=== PATIENT | female | born 1940 ===

== ENCOUNTER 2016-07-01 12:57 | Inpatient (IN) | payer MEDICARE, OTHER ==
[2016-07-01] VITALS (10 sets, daily range): BP systolic 91–127; BP diastolic 63–84; PULSE 126–164; RESP 17–33; O2SAT 95–99
[~2016-07-01] VITALS: Ht 160 cm; Wt 88.1 kg
[~2016-07-01 12:57] MED LIST: ASPI-103 PO; OMEP40CA3 PO; [UNRECOGNIZED DRUG - CODE] PO
[2016-07-01] MEDS ORDERED: Diltiazem Inj 125 MG in 0.9% Sodium Chloride 100 ML, Pharmacy To Mix 1 EA IV SCH (13:05)
--- NOTE | 2016-07-01 13:06 | ED.REPORT ---
HPI-Chest Pain 40 and Over Date of Service Jul 01, 2016 ED Provider: Sean Sr DO 75 year old female presents to the ER via EMS due to chest pain and shortness of breath onset just prior to arrival. Associated symptoms include subjective fever, chills, and productive cough with yellow sputum for the past week, and lower extremity swelling for the past month. History of CT 05/19/2007 at which time she was seen at [facility] in [place] and started on Diltiazem and ASA. Atrial fibrillation with RVR with a rate in the 190's in the field. 45mg Cardizem administered en route; 20mg then 25mg. No respiratory medications , but she takes her husbands Spiriva occasionally. Nursing Notes Stated Complaint: CHEST PAIN Chief Complaint: Chest Pain Nursing Notes Reviewed: Yes Allergies: Coded Allergies: No Known Allergies (Unverified , 07/01/16) Scheduled Aspirin-Expunged Drug, Do Not Renew! (Aspirin-Expunged Drug, Do Not Renew!) 325 Mg Tablet 325 MG PO DAILY Diltiazem-Expunged Drug, Do Not Renew! (Diltiazem CD-Expunged Drug, Do Not Renew !) 240 Mg Capsule 240 MG PO DAILY Omeprazole-Expunged Drug, Do Not Renew! (Omeprazole-Expunged Drug, Do Not Renew! ) 40 Mg Capsule.dr 20 MG PO DAILY General Time Seen by MD: 12:58 Chief Complaint Chest pain Hx Obtained From: Patient Arrived By: Ambulance Sudden in Onset?: Yes Onset Occurred: Just prior to arrival Symptom Duration: Since onset Location: : Substernal Quality: Painful Severity: Current: Moderate Severity: Maximum: Moderate Associated with: Reports: Cough, productive, Fever (Subjective), Shortness of Breath Additional Notes: Lower extremity swelling Pertinent Negative: Pt denies other symptoms Context Related History: Reports: GERD, Hypertension, Myocardial infarction Past Medical History Past Medical History Notes: Code Status: DNAR, DNI. Past Medical History CT in 2007 Reports: GERD, Hypertension, Denies: Diabetes mellitus Past Surgical History Reports: Smoking History Current Every Day Smoker Social History Alcohol Use: Denies alcohol use Review of Systems Constitutional: Reports: Chills, Fever (Subjective) Respiratory: Reports: Prod cough, yellow, Shortness of breath, Denies: Hemoptysis Cardiovascular: Reports: Chest pain GI: Denies: Nausea, Vomiting Musculoskeletal: Reports: Extremity swelling (Lower, bilateral), Denies: Extremity pain, Neck pain Skin: Denies Diaphoresis Complete sys rev & neg: except as marked. Physical Exam Initial Vital Signs Vital Signs (First) Date Time Temp Pulse Resp B/P Pulse Ox O2 Delivery O2 Flow Rate FiO2 07/01/16 13:32 36.9 148 22 127/72 97 Nasal Cannula 2 Initial VS: Reviewed Head / Eyes: Atraumatic, Normocephalic Neck: Supple, Non-tender, Full range of motion Skin: Warm, Dry, No cyanosis Neurologic: Alert, Oriented, Nonfocal Psychiatric: Mood/affect normal, Behavior normal, Normal thought content General/Constitutional: Awake, Alert, Well developed, Well nourished Respiratory / Chest: No chest tenderness, No chest wall deformity Rales / Rhonchi: Positive: Rhonchi diffuse Heart Rate / Rhythm: Positive: Irreg irregular rhythm, Tachycardia Bilateral pitting edema up to the thighs. Abdomen: Soft, Non-tender, No guarding, No rebound, No distention Interpretation & Diagnostics Lab Results Interpretation Result Diagram: 07/01/16 1316 07/01/16 1316 Test 07/01/16 13:16 White Blood Count 8.7th/mm3 (3.8-10.1) Red Blood Count 4.81mil/mm3 (3.90-5.20) Hemoglobin 11.3g/dL (12.0-15.6) Hematocrit 38.2% (35.0-46.0) Mean Corpuscular Volume 79.4fL (81-100) Mean Corpuscular Hemoglobin 23.5pg (27.0-35.0) Mean Corpuscular Hemoglobin Concent 29.6% (32.0-37.0) Red Cell Distribution Width 18.7% (12.3-15.4) Platelet Count 497bil/L (150-400) Neutrophils (%) (Auto) 65.2% (40-74) Lymphocytes (%) (Auto) 21.3% (14-46) Monocytes (%) (Auto) 11.2% (4-12) Eosinophils (%) (Auto) 1.5% (0-5) Basophils (%) (Auto) 0.6% (0-3) Prothrombin Time 12.0sec (8.1-12.5) Prothromb Time International Ratio 1.12ratio Activated Partial Thromboplast Time 25.7sec (22.8-33.0) Sodium Level 144mEq/L (134-144) Potassium Level 3.2mEq/L (3.5-5.2) Chloride Level 108mEq/L (97-108) Carbon Dioxide Level 23mmol/L (18-29) Blood Urea Nitrogen 10mg/dL (8-27) Creatinine 0.79mg/dL (0.57-1.00) Estimat Glomerular Filtration Rate 102mL/min (>59) Glucose Level 112mg/dL (60-99) Calcium Level 8.0mg/dL (8.5-10.1) Magnesium Level 2.1mg/dL (1.6-2.6) Total Bilirubin 0.8mg/dL (0.0-1.2) Aspartate Amino Transf (AST/SGOT) 31U/L (0-50) Alanine Aminotransferase (ALT/SGPT) 17U/L (0-32) Alkaline Phosphatase 114U/L (25-165) Troponin T < 0.010ug/L (0.0-0.011) Pro-B-Type Natriuretic Peptide 1454pg/mL (0-301) Total Protein 6.6g/dL (6.4-8.4) Albumin 3.7g/dL (3.4-5.0) Procalcitonin 0.08ng/mL (0.00-0.08) Hold Cuevas Top Tube Received (Received) ECG Interpretation ECG Interpretation: Atrial fibrillation with RVR Time: 13:17 Interpreted by: ED physician X-Ray Chest Interpretation Chest Xray Interpretation: IMPRESSION: 1. Low volume exam. 2. Possible small right pleural effusion. With bibasilar atelectasis, infiltrate is difficult to exclude, especially in the right lower lobe medially. Dictated by: Emery Nascimento M.D. on 07/01/2016 at 13:41 Approved by: Emery Nascimento M.D. on 07/01/2016 at 13:43 View: Portable, 1 view Interpretation / Wet Read by: Interpret - Radiologist Re-Eval/Medical Decision Med Decision/Clinical Course Clinically this appears to be congestive heart failure, anasarca, A. fib with RVR, minimal clinical response to multiple Cardizem boluses and Cardizem drip, IV digoxin given in the ER as well as an amiodarone bolus. Patient will be admitted. No imaging or laboratory studies that confirm any sort of bacterial infection that would necessitate antibiotics at this time. Source of Hx: Old records Time of Eval: 12:37 Re-Evaluation/Progress Note: Notified from field before patient arrival and counseled on medication recommendation for second push of IV Cardizem. Time of Eval: 13:26 Re-Evaluation/Progress Note: Heart rate is still elevated in the 120's. Updated patient on the plan of care. Time of Eval: 14:16 Re-Evaluation/Progress Note: Patient is restless. Requesting medication for her pain. Time of Eval: 15:00 Re-Evaluation/Progress Note: Patient appears improved. Discussed advance directive. Patient is DNAR, DNI. Consultation #1: Referral / Consult Name: Abdias Valentin MD Consulted With: Cardiology Call Returned at: 14:05 Wire Cutter: Will see patient Note: Start heparin, amiodarone, digoxin. Stop cardizem. Admit. Consultation #2: Referral / Consult Name: Zac Ortega MD Consulted With: Hospitalist Call Returned at: 14:56 Wire Cutter: Agrees with eval, Agrees with plan, Accepts admit Counseled Regarding: Diagnosis, Lab results, Need for admission Discharge & Departure Primary Impression: CHF (congestive heart failure) Additional Impressions: Atrial fibrillation with RVR Anasarca Disposition: ADMITTED TO HOSPITAL Discharge Condition All VS Reviewed: Yes Condition: Stable Referrals: Harvinder Reid (PCP) Crit Care Except Billable Proc Time Spent: 75-104 minutes Services Performed: Patient management by me, Time spent at bedside, Reviewing test results, Reviewing imaging, Discussing patient care, Documentation in record Critical Care Notes: See MDM. Lugo Attestation Portions of this note were transcribed by Govind Gamble. I, Dr. Sr, personally performed the history, physical exam and medical decision-making; I reviewed and confirmed the accuracy of the information in the transcribed note. Signed by: Brittney Henry, 07/01/2016 and 15:05 copies to: Harvinder Reid Timothy S DO Jul 01, 2016 13:06 GOVIND GAMBLE Jul 01, 2016 13:20
[2016-07-01] MEDS ORDERED: Diltiazem 5 mg/mL 5 mL Inj IVPUSH ONE (13:15)
[2016-07-01 13:26] LABS: Mean Corpuscular Hemoglobin 23.5 pg (27.0-35.0); Mean Corpuscular Volume 79.4 fL (81-100)
[2016-07-01 13:30] LABS: BASOPHILS % (AUTO) 0.6 % (0-3); EOSINOPHILS % (AUTO) 1.5 % (0-5); MONOCYTES % (AUTO) 11.2 % (4-12); NEUTROPHILS % (AUTO) 65.2 % (40-74); Platelet Count 497 bil/L (150-400)
--- NOTE | 2016-07-01 13:44 | DRSVH ---
PROCEDURE: X-RAY CHEST ONE VIEW, PORTABLE ([id number]) INDICATIONS: CP TECHNIQUE: One view of the chest was acquired. COMPARISON: 04/30/2014 FINDINGS: Surgical changes and devices: None. Lungs and pleura: Possible small right subpulmonic pleural effusion, no pneumothorax. Low-volume insp iration. Lower lobe markings are accentuated bilaterally most marked in the right retrocardiac region .. Mediastinum: Mediastinal contours appear normal. Heart size is normal. Bones and chest wall: No suspicious bony lesions. Overlying soft tissues appear unremarkable. IMPRESSION: 1. Low volume exam. 2. Possible small right pleural effusion. With bibasilar atelectasis, infiltrate is difficult to excl ude, especially in the right lower lobe medially. Dictated by: Emery Nascimento M.D. on 07/01/2016 at 13:41 Approved by: Emery Nascimento M.D. on 07/01/2016 at 13:43
[2016-07-01 13:52] LABS: INR 1.12 ratio
[2016-07-01 13:55] LABS: Magnesium 2.1 mg/dL (1.6-2.6)
[2016-07-01] MEDS ORDERED: Digoxin 0.25 mg/mL 2 mL Inj IV ONE (13:55)
[2016-07-01 13:59] LABS: TROPONIN T < 0.010 ug/L (0.0-0.011)
[2016-07-01] MEDS ORDERED: Potassium Chloride 20 mEq SR Tablet PO ONE (14:05)
[2016-07-01] MEDS ORDERED: Furosemide 10 mg/mL 4 mL Inj IVPUSH ONE (14:05)
[2016-07-01] MEDS ORDERED: Amiodarone 150 mg/100 mL D5W 150 MG in IV Premix 1 EACH IV ONE (14:10)
[2016-07-01] MEDS ORDERED: Heparin 5,000 Unit/mL Inj IVPUSH ONE (14:15)
[2016-07-01] MEDS ORDERED: Heparin 25K Unit/500mL 0.45 NS 25,000 UNIT in IV Premix 1 EACH IV ONE (14:15)
[2016-07-01] MEDS ORDERED: Amiodarone 360 mg/200 mL D5W 360 MG in IV Premix 1 EACH IV SCH (14:55)
[2016-07-01] MEDS ORDERED: Ondansetron 2 mg/mL 2 mL Inj IVPUSH PRN (15:00)
[2016-07-01] MEDS ORDERED: Alum-Mag Hydrox-Simeth 30 mL Suspension PO PRN ×2 (15:00→15:50)
[2016-07-01] MEDS ORDERED: Polyethylene Glycol (PEG) 17 Gm Powder PO PRN (15:50)
[2016-07-01] MEDS ORDERED: Albuterol-Ipratropium 3 mL Inhalation Solution NEB ONE (16:20)
[2016-07-01] MEDS ORDERED: Albuterol-Ipratropium 3 mL Inhalation Solution NEB PRN (16:20)
[2016-07-01] MEDS: Amiodarone 360 mg/200 mL D5W 360 MG in IV Premix 1 EACH IV SCH ×2 (16:51→23:01)
[2016-07-01 16:53] LABS: APPEARANCE,URINE CLOUDY (CLEAR,HAZY); COLOR,URINE BLOODY (YELLOW)
[2016-07-01 16:54] LABS: OCCULT BLOOD,URINE MODERATE (NEGATIVE); PH,URINE 5.5 (5.0-8.0)
[2016-07-01] MEDS ORDERED: TRAM50TA2 PO (17:42)
[2016-07-01] MEDS ORDERED: GABA-504 PO (17:42)
[2016-07-01] MEDS ORDERED: DILT240C89 PO (17:42)
[2016-07-01] MEDS ORDERED: OMEP20CA11 PO (17:42)
[2016-07-01] MEDS ORDERED: ASPI-973 PO (17:42)
--- NOTE | 2016-07-01 18:08 | DRSVH ---
[facility] [address] [place] [address] Echocardiogram Report Name: CAROL VALENZUELA BStudy Date : 07/01/2016 Height: 63 in Hospital Exam Location: [facility] Weight: 182 lb Gender: Female BSA: 1.9 m2 : 1940 Age: 75 yrs BP: 119/84 mmHg Reason For Study: Anasarca, SOB History: [place], HTN, SMOKER Ordering Physician: Performed By: Christy Tyler Referring Physician: Harvinder Reid Interpretation Summary The left ventricle is normal in size. Left ventricular systolic function is moderately reduced. The ejection fraction is estimated to be 35-40%. There is moderate global hypokinesis of the left ventricle. Diastolic function could not be accurately assessed due to atrial fibrillation. The right ventricle is normal in size and function. The right ventricular systolic pressure is estimated at 26 mmHg assuming a right atrial pressure of 8 mm Hg. The left atrium is mildly dilated. The right atrium is severely dilated. There is mild mitral regurgitation. There is no other significant valvular heart disease. There is a moderate right-sided pleural effusion. Procedure: A two-dimensional transthoracic echocardiogram with color flow and Doppler was performed. The study quality was technically adequate. There is no prior echocardiogram noted for this patient. A contrast injection of Definity was performed to improve assessment of LV function. The patient was in atrial fibrillation with rapid ventricular response during the exam with a heart rate exceeding 100 bpm. Left Ventricle: The left ventricle is normal in size. Left ventricular wall thickness is normal. Left ventricular systolic function is moderately reduced. The ejection fraction is estimated to be 35-40%. There is moderate global hypokinesis of the left ventricle. Diastolic function could not be accurately assessed due to atrial fibrillation. Right Ventricle: The right ventricle is normal in size and function. Atria: The left atrium is mildly dilated. The right atrium is severely dilated. Mitral Valve: The mitral valve leaflets are slightly calcified. There is mild mitral regurgitation. Aortic Valve: The aortic valve is normal in structure and function. No aortic regurgitation is present. Tricuspid Valve: The tricuspid valve is not well visualized. There is mild tricuspid regurgitation. The right ventricular systolic pressure is estimated at 26 mmHg assuming a right atrial pressure of 8 mm Hg. Pulmonic Valve: The pulmonic valve is not well visualized. There is no other significant valvular heart disease. Great Vessels: The aortic root is normal size. The ascending aorta is normal in size. The aortic arch could not be visualized. The IVC is of normal diameter and collapses less than 50% with a sniff. This suggests a right atrial pressure of 8 mm Hg. Pericardium/ Pleura There is a trace loculated pericardial effusion. There is a moderate right-sided pleural effusion. MMode/2D Measurements & Calculations LVIDd: 4.7 cm LA dimension: 5.0 cm RA long axis LVOT diam LVIDs: 3.3 cm FS: 29.8 % LA A2 area: 23.9 cm RA area AoV Opening EPSS: 0.54 cm LA A4 area: 27.2 cm IVSd: 0.81 cm LA length (vol): 7.0 cm: 25.8 cm Ao root diam LVPWd: 0.91 cm LA vol: 79.1 ml RA vol LA vol index : 93.0 ml asc Aorta RA Diam: 3.0 cm : 50.0 mm2 IVC diam: 2.0 cm LV buchanan. diameter/BSA LV sys. diameter/BSA (cm/m^2): 2.5 (cm/m^2): 1.8 Doppler Measurements & Calculations Ao V2 max: 130.3 cm/secMV E max willie Med Peak E' Willie TR max willie Ao max P.8 mmHg : 113.9 cm/sec : 211.4 cm/sec Ao mean P.5 mmHg E/E' med: 15.7 TR max PG LVOT Max Willie : 18.0 mmHg : 92.1 cm/sec PA V2 max : 60.7 cm/sec MANUEL(I,D): 1.6 cm PA mean PG sev ratio: 0.64 : 0.98 mmHg PA Accel Time : 0.09 sec MV dec time: 0.13 sec Ao V2 mean LV V1 max PG PA V2 mean : 88.0 cm/sec : 44.8 cm/sec Ao V2 VTI: 21.5 cmLV V1 VTI : 13.7 cm MANUEL(V,D): 1.8 cm2 MANUEL indexed to BSA (cm^2/m^2): 0.88 Reading Physician:PM
--- NOTE | 2016-07-01 18:13 | NUR ---
Arrived She arrived with her son and to [facility] 2008 at 1605. She was able to walker with stand by assistance to the bathroom where she had blood urinary output. A sample was sent to the lab and the MDs were made aware. She was placed on an MP30 monitor and an Amiodarone drip was started. She immediately had an Echocardiogram done. Care continues.
--- NOTE | 2016-07-01 18:56 | PCM.HPMED ---
Subjective Date of Service Jul 01, 2016 Primary Provider: Admitting Physician: Zac Ortega MD Primary Care Physician: Harvinder Reid Attending Physician: Zac Ortega MD Chief Complaint: SOB, chest pain History of Present Illness: Ms. Kathryn Espana is a 75 year old lady with past medical history significant for [place] (05/19/2007, at which time she was seen at [facility] in [place] and started on Diltiazem 240 mg once daily and ASA), HTN, GERD, and chronic back pain, presents to the ER via EMS due to sharp chest pain an d shortness of breath. Her symptoms started on 05/19/2016. Associated symptoms include subjective fever, chills, and productive cough with yellow sputum for the past week, and swollen lower extremities. She has not been able to lie flat since then and has been using an extra pillow to be able to sleep at night. Her feet pain has limited her from walking. Both her and son have been sick with flu-like symptoms. Atrial fibrillation with RVR with a rate in the 190s in the field. 45 mg Cardizem administered en route; 20 mg then 25 mg. Nor respiratory medications, but she takes her husbands Spiriva occasionally. Review of Systems: Constitutional: reports fever, chills, night sweats, and 60 lbs weight gain since last year CVA: reports chest pain Resp: reports dyspnea, orthopnea, and paroxysmal nocturnal dyspnea GI: reports N/V/D. Denies abdominal pain and blood in her stool LE: reports bilateral LE swelling and pain Allergies Coded Allergies: No Known Allergies (Unverified , 07/01/16) Home Medications diltizem 240 mg daily, omeprazole 20 mg daily, gabapentin 40 mg three times daily, tramadol 50 mg 2 times daily PMH past [place], HTN, GERD Family History significant for diabetes, heart disease and stroke Social History Hx Alcohol Use: Yes (1 beer at nit) Hx Substance Use: No Hx Tobacco Use: Yes (10 cigarettes per day) Smoking Status: Current Every Day Smoker Exam Vital Signs Vital Sign - Last Date Time Temp Pulse Resp B/P Pulse Ox O2 Delivery O2 Flow Rate FiO2 07/01/16 16:34 36.8 144 23 119/84 99 Nasal Cannula 3.00 Exam General: an obese pleasant lady; in no acute stress and conversing well HEENT: mucus membrane dry, edentulous CV: irregularly irregular, tachardiac, no murmurs, rubs, or gallops. No JVD Pulm: Bilateral rhonchi, mild upper airway expiratory wheezing GI: Abs soft, non-tender, distended. Normoactive bowel tones MSK: bilateral, erythematous LE pitting edema, Callus formation on the bottom of the feet. Nails are unkempt. Peripheral pulse weak bilaterally Lab and Diagnostics Result Diagram: 07/01/16 1316 07/01/16 1316 X-Rays, CTs and MRIs X-RAY CHEST ONE VIEW, PORTABLE IMPRESSION: 1. Low volume exam. 2. Possible small right pleural effusion. With bibasilar atelectasis, infiltrate is difficult to exclude, especially in the right lower lobe medially. Dictated by: Emery Nascimento M.D. on 07/01/2016 at 13:41 Cardiac Echo Impressions Echocardiogram Report Interpretation Summary The left ventricle is normal in size. Left ventricular systolic function is moderately reduced. The ejection fraction is estimated to be 35-40%. There is moderate global hypokinesis of the left ventricle. Diastolic function couldnot be accurately assessed due to atrial fibrillation. The right ventricle is normal in size and function. The right ventricular systolic pressure is estimated at 26 mmHg assuming a right atrial pressure of 8 mm Hg. The left atrium is mildly dilated. The right atrium is severely dilated. There is mild mitral regurgitation. There is no other significant valvular heart disease. There is a moderate right-sided pleural effusion. Assessment & Plan Ms. Kathryn Espana is a 75 year old lady with past medical history significant for [place] (05/19/2007, at which time she was seen at [facility] in [place] and started on Diltiazem 240 mg once daily and ASA), HTN, GERD, and chronic back pain, presents to the ER via EMS due to sharp chest pain an d shortness of breath. Her symptoms started on 05/19/2016. Associated symptoms include subjective fever, chills, and productive cough with yellow sputum for the past week, and swollen lower extremities. She has not been able to lie flat since then and has been using an extra pillow to be able to sleep at night. Her feet pain has limited her from walking. Both her and son have been sick with flu-like symptoms. Atrial fibrillation with RVR with a rate in the 190s in the field. 45 mg Cardizem administered en route; 20 mg then 25 mg. Nor respiratory medications, but she takes her husbands Spiriva occasionally. Of note, patient had bloody urine once arriving to the floor. 1. Acute heart failure with reduced ejection fraction, present on admission. Active. - Bilateral LE edema, and CXR consistent with pulmonary edema. She also complains of recent onset dyspnea, PND, and orthopnea. - Echocardiogram as above. EF 35-40%. Previous echo in 2012 showed EF of 81% and previous one of 70% -She received 40 mg IV Lasix this evening, will continue daily. 2. Acute Atrial fibrillation with RVR-active, present on admission. Active. - Noted on EKG. She is on diltizem at home - Given Digoxin in the ED. - [id number] score of 4. on ASA 81mg home. - Amiodarone ggt protocol. - SQ heparin - On tele - Cardiology consulted. 3. Shortness of breath, present on admission. Active. - Most likely 2nd to combination of systolic heart failure and COPD, with patient's long history of tobacco use. - Troponins negaitve x1, repeat pending. EKG with no ST elevation / depressions. Chest pain resolved. - Differential CHF, pneumonia, bronchitis, COPD - Patient was afebrile on presentation; WBC and procal were wnl. Viral panel and blood culture pending - CXR consistent with pulmonary edema. 4. Acute anasarca, present on admission. Active. - Physical exam - bilateral LE pitting edema up to the thigh - Lasix 40 mg IV daily. 5. Acute hematuria, present on admission. Active. - Denies dysuria. UA and cx pending. - Plan for Renal US tomorrow. 6. Chronic hypertension, not present on admission. Active. - She was normotensive on admission - Continue to monitor her 7. Chronic GERD, present on admission. Active. - Continue home meds 8. Obesity - BMI is 32.4 - Start carb restricted diet 9. Chronic back pain, present on admission. Active. - Continue home meds 10. Tobacco use disorder, present on admission. Active. - A current smoker with 30-40 pack year history - Discussed smoking cessation - Start nicotine patch for withdrawal 11. Peripheral neuropathy, present on admission. Active. - HgA1c pending. - continue home gabapentin. Acetaminophen for mild pain when necessary. Bowel regimen Senna and MiraLAX scheduled and PRN. Zofran when necessary for nausea and vomiting. SubQ heparin. SCDs in place. High-risk medications: IV Morphine Disposition: Likely here for > 2 midnights. Dependent upon... Will be discharged to where? When? Acute or chronic? Pain Evaluation: Adequate Pain Control Resuscitation Status: DNR/DNI:Do Not Resuscitate/Intubate Attending Statement The patient was seen and examined together with Dr. Bar on 07/01/2016 and I agree with the history, exam and plan as outlined in the note above. . CHAPIS BAR DO Jul 01, 2016 18:37 Zac Ortega MD Jul 02, 2016 09:23
[2016-07-01] MEDS: Heparin 5,000 Unit/mL Inj SUBQ SCH (23:48)
[2016-07-02] VITALS (7 sets, daily range): BP systolic 96–128; BP diastolic 66–89; PULSE 111–161; RESP 19–24; O2SAT 92–95
[2016-07-02 03:51] LABS: BASOPHILS % (AUTO) 0.7 % (0-3); EOSINOPHILS % (AUTO) 2.2 % (0-5); MONOCYTES % (AUTO) 11.4 % (4-12); Mean Corpuscular Hemoglobin 23.4 pg (27.0-35.0); Mean Corpuscular Volume 80.7 fL (81-100); NEUTROPHILS % (AUTO) 63.1 % (40-74); Platelet Count 429 bil/L (150-400)
--- NOTE | 2016-07-02 06:35 | NUR ---
Ambulation/HR Pt is steady on her feet transferring from bed to commode and back. HR steady with or without movement from 130-150. Pt asymptomatic.
[2016-07-02] MEDS: Heparin 5,000 Unit/mL Inj SUBQ SCH (08:28)
[2016-07-02] MEDS ORDERED: Influenza (Adult) Vaccine 0.5 mL Syringe IM ONE (08:30)
[2016-07-02] MEDS ORDERED: Furosemide 10 mg/mL 4 mL Inj IVPUSH SCH (08:30)
[2016-07-02] MEDS: Amiodarone 360 mg/200 mL D5W 360 MG in IV Premix 1 EACH IV SCH (10:18)
[2016-07-02] MEDS: Heparin 25K Unit/500mL 0.45 NS 25,000 UNIT in IV Premix 1 EACH IV SCH (11:22)
--- NOTE | 2016-07-02 11:26 | NUR ---
spiritual care: dayan Visited with pt this morning who was thankful for the visit. Blessed pt and put her on the list for [employer] communion upon her request. Spiritual care will continue to follow as needed.
--- NOTE | 2016-07-02 12:35 | PCM.PNMED ---
Subjective Date of Service Jul 02, 2016 Subjective Ms. Kathryn Espana is a 75 year old lady with past medical history significant for Afib with RVR, anasarca, and CHF (05/19/2007, at which time she was seen at [facility] in [place] and started on Diltiazem 240 mg once daily and ASA), HTN, GERD, and chronic back pain, presents to the ER via EMS due to sharp chest pain an d shortness of breath. Her symptoms started on 05/19/2016. Associated symptoms include subjective fever, chills, and productive cough with yellow sputum for the past week, and swollen lower extremities. She has not been able to lie flat since then and has been using an extra pillow to be able to sleep at night. Her feet pain has limited her from walking. Both her and son have been sick with flu-like symptoms. Atrial fibrillation with RVR with a rate in the 190s in the field. 45 mg Cardizem administered en route; 20 mg then 25 mg. Nor respiratory medications, but she takes her husbands Spiriva occasionally. Overnight events: no acute events of note. Today: Patient feels great. She states she feels 100 times better than yesterday. No other reports at this time. Denies chest pain, dizziness, headache , shortness of breath, nausea, vomiting, diarrhea, abdominal pain, dysuria. Exam Vital Signs Vital Sign - Last Date Time Temp Pulse Resp B/P Pulse Ox O2 Delivery O2 Flow Rate FiO2 07/02/16 02:56 36.5 131 19 96/66 93 Nasal Cannula 3.00 Intake and Output 07/01/16 07/01/16 07/02/16 Cumulative From/Thru 15:00 23:00 07:00 07/01/16 13:32 - 07/02/16 06:35 Intake Total 120 ml 503 ml 623 ml Output Total 750 ml 300 ml 1050 ml Balance -630 ml 203 ml -427 ml Intake Oral 120 ml 120 ml IV Total 303 ml 303 ml TPN/PPN 200 ml 200 ml Output Urine Total 750 ml 300 ml 1050 ml # Bowel Movements 0 0 Exam General: an obese pleasant lady; in no acute stress and conversing well HEENT: Normocephalic, atraumatic. External ears without defect. Pupils equal, round, and reactive to light and accommodation. Anicteric sclerae, moist conjunctivae, and no lid lag. Oropharynx free of erythema and cobble stoning with moist mucosa. Neck: Supple with full range of motion. No jugular venous distension. No bruits. No lymphadenopathy or thyromegaly. Cardiovascular: tachycardic rate and irregular rhythm with no murmurs, rubs, or gallops appreciated Pulmonary: Clear to auscultation bilaterally with no crackles, but mild wheezes , no rhonchi. Normal respiratory effort with no use of accessory muscles. Abdomen: Bowel tones present. Soft, nontender, nondistended. No hepatosplenomegaly or masses appreciated. Extremities: No clubbing, cyanosis, mild pitting LE edema to the knee, or lymphadenopathy appreciated. poor toenail health. Skin: Normal temperature, turgor, and texture; no rash, ulcers, or subcutaneous nodules appreciated. Neurological: Cranial nerves grossly intact. Normal muscle strength, tone, and bulk. Reflexes, coordination, and sensory function within normal limits. No known gait impairment. Psychiatric: Normal mood and affect. Alert and oriented to person, place, and time. IVs and Medications Medications Reviewed: Medications were reviewed in detail Lab and Diagnostics Result Diagram: 07/02/16 0325 07/02/16 0325 X-Rays, CTs and MRIs X-RAY CHEST ONE VIEW, PORTABLE IMPRESSION: 1. Low volume exam. 2. Possible small right pleural effusion. With bibasilar atelectasis, infiltrate is difficult to exclude, especially in the right lower lobe medially. Dictated by: Emery Nascimento M.D. on 07/01/2016 at 13:41 Cardiac Echo Impressions Echocardiogram Report Interpretation Summary The left ventricle is normal in size. Left ventricular systolic function is moderately reduced. The ejection fraction is estimated to be 35-40%. There is moderate global hypokinesis of the left ventricle. Diastolic function couldnot be accurately assessed due to atrial fibrillation. The right ventricle is normal in size and function. The right ventricular systolic pressure is estimated at 26 mmHg assuming a right atrial pressure of 8 mm Hg. The left atrium is mildly dilated. The right atrium is severely dilated. There is mild mitral regurgitation. There is no other significant valvular heart disease. There is a moderate right-sided pleural effusion. Assessment & Plan Ms. Kathryn Espana is a 75 year old lady with past medical history significant for [place] (05/19/2007, at which time she was seen at [facility] in [place] and started on Diltiazem 240 mg once daily and ASA), HTN, GERD, and chronic back pain, presents to the ER via EMS due to sharp chest pain an d shortness of breath. Her symptoms started on 05/19/2016. Associated symptoms include subjective fever, chills, and productive cough with yellow sputum for the past week, and swollen lower extremities. She has not been able to lie flat since then and has been using an extra pillow to be able to sleep at night. Her feet pain has limited her from walking. Both her and son have been sick with flu-like symptoms. Atrial fibrillation with RVR with a rate in the 190s in the field. 45 mg Cardizem administered en route; 20 mg then 25 mg. Nor respiratory medications, but she takes her husbands Spiriva occasionally. Of note, patient had bloody urine once arriving to the floor (per HPI on admission). 1. Acute systolic heart failure with reduced ejection fraction, present on admission. Active. - Bilateral LE edema, and CXR consistent with pulmonary edema. She also complains of recent onset dyspnea, PND, and orthopnea. - Echocardiogram as above. EF 35-40%. Previous echo in 2011 showed EF of 81% and previous one of 70% - She received 40 mg IV Lasix yesterday, will increase dose to 80 mg BID. 2. Acute Atrial fibrillation with RVR-active, present on admission. Active. - Noted on EKG. She is on diltizem at home - Given Digoxin in the ED. - [id number] score of 4. on ASA 81mg home prescription, however she does not take it daily. - Amiodarone ggt protocol. - IV cardiac heparin ggt . - On tele. - Cardiology consulted. - IV diltiazem ggt, PO amiodarone 400 BID, Loading dose of Digoxin Q6 for 4 doses. 3. Shortness of breath, present on admission. Active. - Most likely 2nd to combination of systolic heart failure and COPD, with patient's long history of tobacco use. - Troponins negaitve x1, repeat pending. EKG with no ST elevation / depressions. Chest pain resolved. - Differential CHF, pneumonia, bronchitis, COPD - Patient was afebrile on presentation; WBC and procal were wnl. Viral panel and blood culture pending - CXR consistent with pulmonary edema. 4. Acute anasarca, present on admission. Active. - Physical exam - bilateral LE pitting edema up to the thigh. - as above. 5. Acute hematuria, present on admission. Active. - Denies dysuria. UA and cx pending. - Will consult Urology. 6. Chronic hypertension, present on admission. Active. - She was normotensive on admission - Continue to monitor her. 7. Chronic GERD, present on admission. Active. - Continue home meds. 8. Obesity. - BMI is 32.4. - Start carb restricted diet. 9. Chronic back pain, present on admission. Active. - Continue home meds. 10. Tobacco use disorder, present on admission. Active. - A current smoker with 30-40 pack year history. - Discussed smoking cessation. - Start nicotine patch for withdrawal. 11. Peripheral neuropathy, present on admission. Active. - HgA1c pending. - continue home gabapentin. Acetaminophen for mild pain when necessary. Bowel regimen Senna and MiraLAX scheduled and PRN. Zofran when necessary for nausea and vomiting. SubQ heparin. SCDs in place. High-risk medications: IV Morphine. Disposition: Likely here for > 2 midnights. Dependent upon... Will be discharged to where? When? Acute or chronic? Pain Evaluation: Adequate Pain Control VTE Mechanical Devices: Intermittant Pneumatic CD Resuscitation Status: DNR/DNI:Do Not Resuscitate/Intubate Time spent 35 minutes Attending Statement Patient was seen and examined with house staff. Agree with all attached documentation. CHAPIS BAR DO Jul 02, 2016 06:52 Perfecto Gutierrez MD Jul 03, 2016 14:58
--- NOTE | 2016-07-02 13:48 | CONS ---
[address] [address] CONSULTATION REPORT PATIENT: CAROL VALENZUELA : 1940 MR#: [id number] ADMIT: 07/01/2016 JOB ID: [id number] DATE OF SERVICE: 07/02/2016 CARDIOLOGY CONSULTATION: I have been asked by the hospitalist team to assist with management of this patient who presented with atypical chest pain, rapid atrial fibrillation and evidence of significant pulmonary and systemic venous congestion. The patient has a history of intermittent atrial fibrillation in the past. She was hospitalized in 2008 in [place] with atypical chest pain and rapid paroxysmal atrial fibrillation which was eventually controlled and she was discharged home on aspirin and 240 of diltiazem at the time. Her CHADS 2 score was 2 and she was felt to be safe going home with just aspirin alone. She had a nuclear cardiac stress study in 2011 when she came into the hospital with symptoms of atypical chest discomfort and the stress perfusion images were normal showing no evidence of underlying ischemic heart disease despite her long history of regular continued smoking. The patient states that she became ill on May 19 after celebrating . Symptoms included progressive dyspnea, lower extremity edema along with cough, yellowish sputum production and low-grade fevers, chills and myalgias and fatigue. Over the course of the last week, her edema and dyspnea worsened and she finally presented to the emergency department for evaluation and was found to be in very rapid atrial fibrillation. The patient also has symptoms of substernal or left precordial chest discomfort which she states comes on when she is upset with her or stressed. She does not give a history of exertional angina. The discomfort resolves after about a half an hour and seems to be helped with manual massage to her left chest or sternum. Since hospitalization, this patient's heart rate has remained in the 140-160 range in rapid atrial fibrillation. She has been diuresing and states that her lower extremity edema has improved and her breathing has improved, but that is not reflected in her weights which were significantly different but on different scales. Her net negative output yesterday according to the chart was around 600-700 cc. Once again, she feels like her breathing is much improved and she looks comfortable lying in bed with her head elevated at about 30 degrees. DATE OF SERVICE: REVIEW OF SYSTEMS: Is notable for intermittent recurrent hematuria. She has had no history of GI bleeding issues but does describe intermittent symptoms of reflux. HOME MEDICATIONS: Include: 1. Diltiazem 240 mg daily. 2. Omeprazole 20 mg daily. 3. She takes gabapentin as well as tramadol. PAST MEDICAL HISTORY: Is notable for the fact that her hospitalization in 2008 was not for a myocardial infarction but for rapid atrial fibrillation. Her cardiac evaluation, at that time and subsequently, has not demonstrated any evidence of obstructive coronary disease and she has no past history of myocardial infarction. She does have a history of hypertension as well as GERD. SOCIAL HISTORY: Notable for smoking. Her apparently is an alcoholic and she is under a significant amount of stress for that reason. PHYSICAL EXAMINATION: This patient is resting comfortably. Her color is good. She has prominent jugular venous distention with jugular venous pulse visible at the ear lobe with the patient at about 45 degrees. Lung hendrix demonstrate diffuse rhonchi with scattered expiratory wheezing. Heart tones are distant with a rapid irregular rhythm. I do not hear an obvious cardiac murmur. Abdomen is obese. She has a moderate amount of tenderness to palpation in the right upper quadrant and has some degree of hepatic percussion tenderness. I cannot necessarily feel the edge of her liver. Bowel tones are present. I hear no bruits. Distal extremities demonstrate 3-4+ lower extremity edema from the thigh to the feet. LABORATORY WORK: Is notable for mild anemia with a hemoglobin of 10.1, white count is normal. Platelet count 429,000. Her chemistries show a mildly elevated hemoglobin A1c at 6.5. Troponin levels are normal. A TSH level is normal. Total cholesterol is surprisingly low at 99 with an LDL cholesterol of 41. Her protein and albumin are low as is her calcium. Liver function tests are normal. Creatinine is normal. Electrolytes are normal. Chest x-ray shows overall probably normal heart size for a portable film which is slightly rotated. There is evidence of moderate pulmonary vascular congestion. Echocardiogram I personally reviewed demonstrates [id number] left ventricular systolic dysfunction with an ejection fraction probably in the range of 40%. No clear-cut regional wall motion abnormality seen. She has significant biatrial enlargement. Right ventricular size appears normal but there are some views where the right ventricular systolic function appears poor. Inferior vena cava is dilated and does not collapse with inspiration consistent with central venous pressure probably greater than 15 cm. IMPRESSION: 1. Rapid atrial fibrillation: This patient has had several episodes in the past where she has presented with very rapid atrial fibrillation. She will require long-term chronic anticoagulation. The goal currently is for rate control and at this time she is only on intravenous amiodarone. Previously she was well controlled in [place] with a combination of intravenous diltiazem as well as amiodarone and I would go ahead and add a loading dose of digoxin as well. This patient should be on cardiac protocol heparin until the etiology of her ongoing hematuria is better understood. Once we have some impression regarding the nature of her hematuria, we can make recommendations regarding long-term anticoagulation. 2. Symptomatic pulmonary congestion as well as prominent anasarca: Once again, this patient's right ventricle is not significantly enlarged and her pulmonary artery pressures are normal though her central venous pressures remains high. At this point, I think this simply represents a biventricular dysfunction related to very rapid atrial fibrillation and aggressive intravenous diuretic therapy is indicated. I would recommend 80 mg of intravenous furosemide b.i.d. and be sure that her potassium is well replaced. 3. Chronic obstructive pulmonary disease with asthmatic bronchitis and a history of ongoing smoking. 4. Atypical chest pain with negative evaluation in the past for ischemic heart disease. I think it would be reasonable for her to undergo stress test evaluation once she is either rate controlled or out of atrial fibrillation and this can probably be done as an outpatient unless there are more objective signs that she has underlying ischemic heart disease. Her chest discomfort currently is quite atypical and I do not think a stress test at this point is necessary. 5. Hematuria: It would be reasonable to have Urology evaluate this patient early on so that we are going to be clear about how to manage her anticoagulation. For the time being, she will remain on heparin until we have a more clear understanding of the nature of her hematuria. I hope these thoughts and recommendations are helpful and I am more than happy to assist with her care again tomorrow.
[2016-07-02] MEDS: Digoxin 0.25 mg/mL 2 mL Inj IV SCH ×2 (14:58→17:17)
[2016-07-02] MEDS: Furosemide 10 mg/mL 4 mL Inj IVPUSH SCH ×2 (14:59→20:41)
--- NOTE | 2016-07-02 16:15 | DRSVH ---
PROCEDURE: CT ABDOMEN PELVIS W&WO CONTRAST IVP PROTOCOL INDICATIONS: Gross hematuria TECHNIQUE: Optional 5 mm thick noncontrast images acquired from the diaphragm to the symphysis pubis. After the administration of intravenous contrast, 5 mm thick images acquired from the diaphragm to the symphys is pubis after a 10-minute delay. 2 mm thick coronal and sagittal reformats were then performed of t he kidneys and ureters. For radiation dose reduction, the following was used: automated exposure co ntrol, adjustment of mA and/or kV according to patient size. COMPARISON: None. FINDINGS: Image quality: Excellent. Lung bases: A small right pleural effusion is present. Right basilar atelectasis versus pneumonia. He art size is normal. Urinary system: Both kidneys are normal in size, without hydronephrosis or nephrolithiasis on pre-co ntrast images. No perinephric fat stranding. There is normal bilateral renal enhancement. Renal ca lyces appear normal in morphology when filled with contrast. Opacified portions of both ureters demo nstrate normal caliber. Bladder wall thickness is normal. No calcified bladder stones. Other solid organs: Left hepatic lobe cysts. Liver and spleen are otherwise normal in size and enhanc ement. Gallbladder is within normal limits. Biliary system is non dilated. Pancreas enhances kadeem lly. No adrenal nodules. Peritoneum and bowel: Bowel loops demonstrate normal wall thickness and caliber. No free fluid or a ir. Mild fat stranding within the bilateral anterior pararenal spaces. Small amount of presacral flu id. Nodes and vessels: No retroperitoneal or mesenteric adenopathy by size criteria. Aorta and inferior vena cava are normal in size. Abdominal wall: No ventral hernias. Moderate diffuse flank edema. Pelvis: No pathologic free pelvic fluid. No inguinal hernias or adenopathy. There is thickening of the endometrium, measuring 17 mm in thickness. Bones: No suspicious bony lesions. No vertebral body compression fractures. IMPRESSION: 1. No evidence of urinary tract calcification, nor obstruction. No evidence of renal neoplasm. 2. Thickening of the endometrium. Findings are worrisome for endometrial carcinoma; initial further a ssessment with pelvic ultrasound examination is recommended. 3. Small right pleural effusion and right basilar atelectasis versus pneumonia. 4. Bilateral flank edema. 5. Small amount of presacral fluid and bilateral anterior pararenal space fat stranding, presumably r eflective of 3rd spacing. Dictated by: Melvin Hammnod M.D. on 07/02/2016 at 16:10 Approved by: Melvin Hammond M.D. on 07/02/2016 at 16:14
[2016-07-02] MEDS: Heparin 5,000 Unit/mL Inj IVPUSH PRN ×2 (17:16→23:07)
--- NOTE | 2016-07-02 17:37 | NUR ---
Afib/O2/Lasix The pt has remained in Afib throughout the shift. This afternoon, IV amiodarone was DC'ed for PO. Digoxin IVP has been added, with the HR going from the 160's+ to 130's+. The pt remains asymptomatic with the afib. The pt has been on RA since breakfast, with sats holding in the low to mid 90's. 80mg IVP lasix is yielding good urine return.
[2016-07-02] MEDS: Diltiazem Inj 125 MG in 0.9% Sodium Chloride 100 ML, Pharmacy To Mix 1 EA IV SCH (20:34)
[2016-07-03] VITALS (7 sets, daily range): BP systolic 91–129; BP diastolic 56–80; PULSE 125–149; RESP 18–21; O2SAT 96–98
[2016-07-03] MEDS: Digoxin 0.25 mg/mL 2 mL Inj IV SCH ×2 (01:25→06:45)
--- NOTE | 2016-07-03 02:36 | NUR ---
HR/Oxygenation Pt continues to be in the 140-150. Once sustained at 160-170 for 2 minutes. Pt's diltiazem drip titrated from 5-15 with increments of 5 each hour. Pt also receiving q6h Digoxin IV pushes and PO amiodarone. Oxygen levels fall to 88-89 when pt is asleep. 3L NC given to pt and Sp02 increased to 97%.
[2016-07-03 07:49] LABS: BASOPHILS % (AUTO) 0.2 % (0-3); EOSINOPHILS % (AUTO) 0 % (0-5); MONOCYTES % (AUTO) 6.8 % (4-12); Mean Corpuscular Hemoglobin 23.1 pg (27.0-35.0); Mean Corpuscular Volume 77.1 fL (81-100); NEUTROPHILS % (AUTO) 85.8 % (40-74); Platelet Count 475 bil/L (150-400)
[2016-07-03] MEDS: Furosemide 10 mg/mL 4 mL Inj IVPUSH SCH (08:35)
[2016-07-03] MEDS: Diltiazem Inj 125 MG in 0.9% Sodium Chloride 100 ML, Pharmacy To Mix 1 EA IV SCH ×2 (08:38→21:15)
--- NOTE | 2016-07-03 09:18 | NUR ---
[facility] Signed
--- NOTE | 2016-07-03 09:21 | NUR ---
Social Work: Initial Assessment D: Per EMR review, pt is a 75 year old female admitted for AFIB, Anasarca, CHF. Pt is Medicare with [place] [facility] supplement; pt has not LTC insurance or VA Benefits. PCP is PAVITHRA Krishnamurthy. NOK is Rony Espana, Spouse, and son, [place] Espana. Advanced directives not completed- information provided by BATH STEWARD/STEWARDESS. Readmit score is low, 05/25. BATH STEWARD/STEWARDESS met with pt at bedside. Sw role and contact information provided. See initial assessment. Pt lives in a single-story ramb[place] with her spouse and son. Pt uses a walker at baseline but is otherwise I with ADLs. Pt does not drive and relies on her son for transportation. Pt has never had HH or skilled rehab/nursing. Pt has been up to [facility] during admission and states that she anticipates being able to go home once medically stable. A: Pt who is I at baseline. P: Evolving; Anticipate pt to discharge home, BATH STEWARD/STEWARDESS to follow pt's clinical course and assist if needs arise. MARYAM Harding Addendum: 07/03/16 at 0925 by LINDA LEVINE Amended: Links added.
[2016-07-03] MEDS ORDERED: Potassium Chloride 20 mEq SR Tablet PO ONE (10:15)
[2016-07-03] MEDS ORDERED: MeTOProlol XL 25 mg ER24 Tablet PO SCH ×2 (10:45→16:30)
--- NOTE | 2016-07-03 10:45 | DRSVH ---
PROCEDURE: US PELVIC SONOGRAM + TRANSVAGINAL SONOGRAM INDICATIONS: Endometrial thickening seen on CT TECHNIQUE: Real-time scanning was performed of the pelvic organs, with image documentation. The patient refused transvaginal scan. COMPARISON: [facility], CT, CT ABD PELVIS W&WO CON IVP, 07/02/2016, 15:03. FINDINGS: Transabdominal scanning: Limited scanning through the kidneys shows no hydronephrosis. No pathologi c free abdominal or pelvic fluid. Examination is limited. No endovaginal imaging was performed at the patient's request. The uterus a nd ovaries are not visualized. IMPRESSION: Nonvisualization of uterus and ovaries on abdominal ultrasound. No free fluid in pelvis. Dictated by: Michael Herrmann [facility] Interpreted: Chuy Farris MD on 07/03/2016 at 10:43 Transcribed by: DARIEL on 07/03/2016 at 10:45 Approved by: Chuy Farris M.D. on 07/04/2016 at 19:30
--- NOTE | 2016-07-03 12:34 | PROG NOTE ---
[address] [address] PROGRESS NOTE PATIENT: CAROL VALENZUELA : 1940 MR#: [id number] ADMIT: 07/01/2016 JOB ID: [id number] DATE: 07/03/2016 SUBJECTIVE: The patient continues to be in atrial fibrillation with a rapid ventricular response. Heart rate averages have come down from the 150-160 range into the 130-140 range. She remains asymptomatic from the atrial fibrillation and is diuresing briskly from intravenous Lasix. She is nauseated currently because of a 40 mEq dose of potassium, which was given earlier for her fairly significant hypokalemia related to her diuresis yesterday. OBJECTIVE: The patient's examination also demonstrated evidence of endometrial thickening concerning for possible cancer. This may be an etiology for her hematuria and iron deficiency anemia, and all of this plays into the need for her to be on long-term anticoagulant therapy due to her recurrent atrial fibrillation. This patient's examination is not significantly changed from yesterday otherwise. She has a persistent jugular venous distention and moderate persistent edema notable but the edema is improved from yesterday. No other change is noted. Laboratory notable for potassium this morning of 3.1 as mentioned. She has mild alkalosis with a CO2 of 30 as well, and she is hypochloremic. IMPRESSION AND PLAN: Mild to moderate left ventricular systolic dysfunction with prominent elevation in central venous pressure and anasarca likely related to persistent rapid atrial fibrillation over the past month or so. She has had difficulty in the past with rate control and has a persistent tachycardia despite amiodarone, intravenous diltiazem and digoxin yesterday. Her rate has improved some, and I suspect that will continue as the medications are adjusted. I am going to increase her metoprolol to 25 mg q.8 h. Because of her nausea I am going to change her amiodarone to 200 mg t.i.d. with food, and I will cut back on her potassium to 10 mEq t.i.d. with food as well which hopefully she will tolerate. Low-dose spironolactone will be added, and her p.o. potassium can be cut back as necessary if her potassium level rises with this combination. Once again, I think over the next 24-48 hours I would expect that her atrial fibrillation rate will improve, and it is likely that she will require combination of high-dose p.o. diltiazem along with beta-maya therapy snf. I am not sure that I would leave her on amiodarone terminal supervisor but perhaps over the next month or so it would be reasonable. One of the primary issues of concern relates to her hematuria and possible uterine cancer. I have spoken with her in some detail regarding the fact that she needs an anticoagulant medication to prevent a stroke which she is interested in preventing but at the same time, we have to be concerned about her bleeding risks because of her history of recurrent hematuria. She understands the need for a vaginal ultrasound examination but does not feel up to it today but would likely consider it at some time over the next few days if she is feeling better. Again, I think it needs to be coached in terms of the need for anticoagulation therapy to prevent a stroke in the concerns regarding her bleeding risks. My partner will take over her care tomorrow and follow her through the weekend as necessary.
[2016-07-03] MEDS: Heparin 25K Unit/500mL 0.45 NS 25,000 UNIT in IV Premix 1 EACH IV SCH (12:58)
--- NOTE | 2016-07-03 15:23 | PCM.PNMED ---
Subjective Date of Service Jul 03, 2016 Subjective Ms. Kathryn Espana is a 75 year old lady with past medical history significant for Afib with RVR, anasarca, and CHF (05/19/2007, at which time she was seen at [facility] in [place] and started on Diltiazem 240 mg once daily and ASA), HTN, GERD, and chronic back pain, presents to the ER via EMS due to sharp chest pain an d shortness of breath. Her symptoms started on 05/19/2016. Associated symptoms include subjective fever, chills, and productive cough with yellow sputum for the past week, and swollen lower extremities. She has not been able to lie flat since then and has been using an extra pillow to be able to sleep at night. Her feet pain has limited her from walking. Both her and son have been sick with flu-like symptoms. Atrial fibrillation with RVR with a rate in the 190s in the field. 45 mg Cardizem administered en route; 20 mg then 25 mg. Nor respiratory medications, but she takes her husbands Spiriva occasionally. Overnight events: no acute events of note. Today: Patient feels great. She states she feels great today. No other reports at this time. Continues to remain tachycardic and refractory to rate control medications. Denies chest pain, dizziness, headache, shortness of breath, nausea, vomiting, diarrhea, abdominal pain, dysuria. Exam Vital Signs Vital Sign - Last Date Time Temp Pulse Resp B/P Pulse Ox O2 Delivery O2 Flow Rate FiO2 07/03/16 14:55 36.8 125 20 108/56 98 Nasal Cannula 2.00 Intake and Output 07/02/16 07/02/16 07/03/16 Cumulative From/Thru 15:00 23:00 07:00 07/01/16 13:32 - 07/03/16 05:19 Intake Total 795 ml 640 ml 2058 ml Output Total 3158 ml 3100 ml 7308 ml Balance -2363 ml -2460 ml -5250 ml Intake Oral 680 ml 640 ml 1440 ml IV Total 115 ml 418 ml TPN/PPN 200 ml Output Urine Total 3158 ml 3100 ml 7308 ml # Bowel Movements 1 0 1 Exam General: an obese pleasant lady; in no acute stress and conversing well HEENT: Normocephalic, atraumatic. External ears without defect. Pupils equal, round, and reactive to light and accommodation. Anicteric sclerae, moist conjunctivae, and no lid lag. Oropharynx free of erythema and cobble stoning with moist mucosa. Neck: Supple with full range of motion. No jugular venous distension. No bruits. No lymphadenopathy or thyromegaly. Cardiovascular: tachycardic rate and irregular rhythm with no murmurs, rubs, or gallops appreciated Pulmonary: Clear to auscultation bilaterally with no crackles, but mild wheezes , no rhonchi. Normal respiratory effort with no use of accessory muscles. Abdomen: Bowel tones present. Soft, nontender, nondistended. No hepatosplenomegaly or masses appreciated. Extremities: No clubbing, cyanosis, mild pitting LE edema to the knee, or lymphadenopathy appreciated. poor toenail health. Skin: Normal temperature, turgor, and texture; no rash, ulcers, or subcutaneous nodules appreciated. Neurological: Cranial nerves grossly intact. Normal muscle strength, tone, and bulk. Reflexes, coordination, and sensory function within normal limits. No known gait impairment. Psychiatric: Normal mood and affect. Alert and oriented to person, place, and time. IVs and Medications Medications Reviewed: Medications were reviewed in detail Lab and Diagnostics Result Diagram: 07/03/16 0740 07/03/16 0740 X-Rays, CTs and MRIs X-RAY CHEST ONE VIEW, PORTABLE IMPRESSION: 1. Low volume exam. 2. Possible small right pleural effusion. With bibasilar atelectasis, infiltrate is difficult to exclude, especially in the right lower lobe medially. Dictated by: Emery Nascimento M.D. on 07/01/2016 at 13:41 CT ABDOMEN PELVIS W&WO CONTRAST IVP PROTOCOL IMPRESSION: 1. No evidence of urinary tract calcification, nor obstruction. No evidence of renal neoplasm. 2. Thickening of the endometrium. Findings are worrisome for endometrial carcinoma; initial further assessment with pelvic ultrasound examination is recommended. 3. Small right pleural effusion and right basilar atelectasis versus pneumonia. 4. Bilateral flank edema. 5. Small amount of presacral fluid and bilateral anterior pararenal space fat stranding, presumably reflective of 3rd spacing. Dictated by: Melvin Hammond M.D. on 07/02/2016 at 16:10 Cardiac Echo Impressions Echocardiogram Report Interpretation Summary The left ventricle is normal in size. Left ventricular systolic function is moderately reduced. The ejection fraction is estimated to be 35-40%. There is moderate global hypokinesis of the left ventricle. Diastolic function couldnot be accurately assessed due to atrial fibrillation. The right ventricle is normal in size and function. The right ventricular systolic pressure is estimated at 26 mmHg assuming a right atrial pressure of 8 mm Hg. The left atrium is mildly dilated. The right atrium is severely dilated. There is mild mitral regurgitation. There is no other significant valvular heart disease. There is a moderate right-sided pleural effusion. Assessment & Plan Ms. Kathryn Espana is a 75 year old lady with past medical history significant for AR (05/19/2007, at which time she was seen at [facility] in [place] and started on Diltiazem 240 mg once daily and ASA), HTN, GERD, and chronic back pain, presents to the ER via EMS due to sharp chest pain an d shortness of breath. Her symptoms started on 05/19/2016. Associated symptoms include subjective fever, chills, and productive cough with yellow sputum for the past week, and swollen lower extremities. She has not been able to lie flat since then and has been using an extra pillow to be able to sleep at night. Her feet pain has limited her from walking. Both her and son have been sick with flu-like symptoms. Atrial fibrillation with RVR with a rate in the 190s in the field. 45 mg Cardizem administered en route; 20 mg then 25 mg. Nor respiratory medications, but she takes her husbands Spiriva occasionally. Of note, patient had bloody urine once arriving to the floor (per HPI on admission). 1. Acute systolic heart failure with reduced ejection fraction, present on admission. Active. - Bilateral LE edema, and CXR consistent with pulmonary edema. She also complains of recent onset dyspnea, PND, and orthopnea. - Echocardiogram as above. EF 35-40%. Previous echo in 2011 showed EF of 81% and previous one of 70% - IV Lasix 80 mg BID. - KCL PO 40 Q 12H. 2. Acute Atrial fibrillation with RVR-active, present on admission. Improving. - Noted on EKG. She is on diltizem at home - Given Digoxin in the ED. - [id number] score of 4. on ASA 81mg home prescription, however she does not take it daily. - Amiodarone ggt protocol currently maxed out at 15mg. - IV cardiac heparin ggt was initially d/c's due to PTT >250, however the lab value was aberrant. ggt restarted. - On tele. - Cardiology consulted. - IV diltiazem ggt, PO amiodarone 400 BID, Loading dose of Digoxin Q6 for 4 doses. Metoprolol succinate 25 mg PO Q6H. 3. Shortness of breath, present on admission. Active. - Most likely 2nd to combination of systolic heart failure and COPD, with patient's long history of tobacco use. - Troponins negaitve x1, repeat pending. EKG with no ST elevation / depressions. Chest pain resolved. - Differential CHF, pneumonia, bronchitis, COPD - Patient was afebrile on presentation; WBC and procal were wnl. Viral panel and blood culture pending - CXR consistent with pulmonary edema. 4. Acute anasarca, present on admission. Active. - Physical exam - bilateral LE pitting edema up to the thigh. - as above. 5. Acute hematuria, present on admission. Active. - Denies dysuria. UA and cx pending. - Urology consulted. - CT pyelogram as above. negative for Bladder involvement, however positive for endometrial thickening with concern for carcinoma. patient was made aware and she does not wish any further investigation at this time. She understands that this could represent cancer and she states "she is old, and has been made aware in the past, and has denied investigation then as well." 6. Chronic hypertension, present on admission. Active. - She was normotensive on admission - Continue to monitor BP. 7. Chronic GERD, present on admission. Active. - Continue home meds. 8. Obesity. - BMI is 32.4. - Start carb restricted diet. 9. Chronic back pain, present on admission. Active. - Continue home meds. 10. Tobacco use disorder, present on admission. Active. - A current smoker with 30-40 pack year history. - Discussed smoking cessation. - Start nicotine patch for withdrawal. 11. Peripheral neuropathy, present on admission. Active. - HgA1c pending. - continue home gabapentin. Acetaminophen for mild pain when necessary. Bowel regimen Senna and MiraLAX scheduled and PRN. Zofran when necessary for nausea and vomiting. SubQ heparin. SCDs in place. High-risk medications: IV Morphine. Disposition: Likely here for > 2 midnights. Dependent upon... Will be discharged to where? When? Acute or chronic? Pain Evaluation: Adequate Pain Control VTE Mechanical Devices: Intermittant Pneumatic CD Resuscitation Status: DNR/DNI:Do Not Resuscitate/Intubate Time spent 45 minutes Attending Statement The patient was seen and examined together with Dr. Bar on 07/03/2016 and I agree with the history, exam and plan as outlined in the note above. . CHAPIS BAR DO Jul 03, 2016 15:23 Perfecto Gutierrez MD Jul 04, 2016 09:42 Zac Ortega MD Jul 04, 2016 17:41
--- NOTE | 2016-07-03 17:27 | NUR ---
pTT/Dilt/Metop The pt had a false high pTT reading of 256 this morning. The heparin drip was stopped, and lab was asked to come do a re-draw on the opposite arm of the drip. The redraw yielded a pTT of 40.6, and the heparin was reinstated. The drip is currently running at 1200 units/hour - with the next redraw ordered for 2100. The pt is still on a dilt drip at 15/hour, and PO metop has been ordered, and the PO amiodarone has been decreased. The pt refused a trans-vaginal ultrasound today to rule out endometrial cancer - which is expected the pt has.
[2016-07-03] MEDS: MeTOProlol XL 25 mg ER24 Tablet PO SCH (21:16)
--- NOTE | 2016-07-03 22:31 | NUR ---
Mentation Pt pleased with her day and states she feels appreciation for all the work that the medication staff do for her. Pt has a possible new dx of uterine cancer and has declined further testing to probe issue. Pt made no mention of any concerns.
[2016-07-04 00:35] VITALS: BP 102/66; PULSE 126; RESP 22; O2SAT 93
[2016-07-04 03:08] LABS: BASOPHILS % (AUTO) 0.3 % (0-3); EOSINOPHILS % (AUTO) 0.2 % (0-5); MONOCYTES % (AUTO) 10.9 % (4-12); Mean Corpuscular Hemoglobin 23.5 pg (27.0-35.0); Mean Corpuscular Volume 77.8 fL (81-100); NEUTROPHILS % (AUTO) 75.7 % (40-74); Platelet Count 472 bil/L (150-400)
[2016-07-04 03:26] LABS: Magnesium 1.9 mg/dL (1.6-2.6)
[2016-07-04] MEDS: MeTOProlol XL 25 mg ER24 Tablet PO SCH ×3 (04:01→15:35)
[2016-07-04 05:06] VITALS: BP 100/50; PULSE 117; RESP 22; O2SAT 95
[2016-07-04 05:21] VITALS: PULSE 100
[2016-07-04 08:00] VITALS: PULSE 116
[2016-07-04 08:09] VITALS: BP 109/43; PULSE 134; RESP 16; O2SAT 91
[2016-07-04] MEDS: Diltiazem Inj 125 MG in 0.9% Sodium Chloride 100 ML, Pharmacy To Mix 1 EA IV SCH (08:19)
[2016-07-04] MEDS ORDERED: Furosemide 10 mg/mL 4 mL Inj IVPUSH SCH (08:30)
[2016-07-04] MEDS: Heparin 25K Unit/500mL 0.45 NS 25,000 UNIT in IV Premix 1 EACH IV SCH (10:04)
--- NOTE | 2016-07-04 10:59 | NUR ---
Wants to go home Per report pt on NPO for procedure this am, pt ate breakfast, stating she did not want any more procedures. Stated she wants to go home. notified.
[2016-07-04] MEDS ORDERED: Furosemide 10 mg/mL 10 mL Inj IVPUSH SCH (11:20)
--- NOTE | 2016-07-04 11:54 | NUR ---
Right Arm/IV Patient stating soreness on right arm, has noticeable redness and swelling on right arm. Marked redness, elevated arm on pillow, applied heat. Care Continues. Patient stating pain on right arm. Patient's LAC IV bothering her, slight swelling, called IV therapy, IV therapy placing new IV. Addendum: 07/04/16 at 1337 by ELIZ MEJIA RN LAC also marked around redness.
[2016-07-04 12:09] VITALS: BP 111/55; PULSE 107; RESP 18; O2SAT 94
[2016-07-04] MEDS ORDERED: AMIO200T PO (14:53)
[2016-07-04] MEDS ORDERED: SPIR25TA PO (14:53)
[2016-07-04] MEDS ORDERED: FURO-128 PO (14:53)
[2016-07-04] MEDS ORDERED: METO25TA99 PO (14:53)
[2016-07-04] MEDS ORDERED: APIX2.5T PO (14:53)
[2016-07-04] MEDS ORDERED: POTA10TA38 PO (14:53)
[2016-07-04] MEDS ORDERED: LISI2.5T PO (14:53)
--- NOTE | 2016-07-04 15:04 | PCM.DIMED ---
CHAPIS BAR DO 07/04/16 1436: Discharge Instructions Date of Service Jul 04, 2016 Dates of Hospitalization Jul 01, 2016 at 15:26 Discharge Diagnosis Discharge Diagnosis 1. Acute systolic heart failure with reduced ejection fraction, present on admission. Controlled. 2. Acute Atrial fibrillation with RVR-active, present on admission. Improving. 3. Shortness of breath, present on admission. Resolved. 4. Acute anasarca, present on admission. Improved. 5. Acute hematuria, present on admission. improved. 6. Chronic hypertension, present on admission. Active. 7. Chronic GERD, present on admission. Active. 8. Obesity. 9. Chronic back pain, present on admission. Active. 10. Tobacco use disorder, present on admission. Active. 11. Peripheral neuropathy, present on admission. Active. Medication Instructions New medications : Amiodarone 200 mg. (42 pills total) - For the first 7 days. Take 200 mg 3 times a day with meals. (21 pills) - The next 7 days. Take 200 mg 2 times a day. (14 pills) - Then next 7 days. Take 200 mg every day. (7 pills) Lisinopril 2.5 mg daily Metoprolol Succinate ER 50 mg 2 times per day. Spironolactone 25 mg daily. Furosemide 40 mg daily. Apixaban (Eliquis) 2.5 mg daily. Potassium chloride 10 Meq daily. Diet Heart Healthy, Diabetic Activity Limited until seen by PCP Call your provider Fever or Chills, Shortness of breath, Bleeding, Chest pain, Vomitting, Excessive diarrhea, Weakness (unilateral), Other (Swelling in your legs. severe bleeding. ) Patient Instructions Follow-up plan Please follow up with your primary care physician for blood pressure and new medication check. You will need blood work 1-2 days before your appointment. Lab work - BMP. Please follow up with your cardiology office in 2-3 weeks time. Follow-up Provider: [facility] Follow-up with PCP in: 1 week Provider: Abdias Valentin MD Follow-up in: 2 weeks (2-3 weeks) Perfecto Gutierrez MD 07/04/16 9527: Discharge Instructions Attending's Statement Patient seen and examined with house staff. Agree with all attached documentation. CHAPIS BAR DO Jul 04, 2016 14:36 Perfecto Gutierrez MD Jul 04, 2016 18:17
--- NOTE | 2016-07-04 16:12 | NUR ---
Discharge Patient discharged at approximately 1615 to home with and son. Patient given discharge packet with new prescriptions, educational material for prescriptions, Afib, CHF and HTN. Next dose to be taken clearly written with dates and times and follow up appointments. IVs DC'd with catheters intact, tele DC'd color television console monitor notified. Patient and acknowledged they understood all information. Patient left with all belongings, escorted by PRESSURE DISPATCHER in wheelchair to the door.
--- NOTE | 2016-07-07 13:40 | PCM.DC.MED ---
Discharge Summary Date of Service Jul 04, 2016 Dates of Hospitalization Date of Hospital Admission Jul 01, 2016 at 15:26 Date of Discharge: Jul 04, 2016 Providers: Admitting Physician: Zac Ortega MD Primary Care Physician: Harvinder Reid Attending Physician: Zac Ortega MD Diagnosis at Time of Discharge Diagnosis at Time of Discharge 1. Acute systolic heart failure with reduced ejection fraction, present on admission. Controlled. 2. Acute Atrial fibrillation with RVR-active, present on admission. Improving. 3. Shortness of breath, present on admission. Resolved. 4. Acute anasarca, present on admission. Improved. 5. Acute hematuria, present on admission. improved. 6. Chronic hypertension, present on admission. Active. 7. Chronic GERD, present on admission. Active. 8. Obesity. 9. Chronic back pain, present on admission. Active. 10. Tobacco use disorder, present on admission. Active. 11. Peripheral neuropathy, present on admission. Active. Procedures XRay, CTs & MRIs X-RAY CHEST ONE VIEW, PORTABLE IMPRESSION: 1. Low volume exam. 2. Possible small right pleural effusion. With bibasilar atelectasis, infiltrate is difficult to exclude, especially in the right lower lobe medially. Dictated by: Emery Nascimento M.D. on 07/01/2016 at 13:41 CT ABDOMEN PELVIS W&WO CONTRAST IVP PROTOCOL IMPRESSION: 1. No evidence of urinary tract calcification, nor obstruction. No evidence of renal neoplasm. 2. Thickening of the endometrium. Findings are worrisome for endometrial carcinoma; initial further assessment with pelvic ultrasound examination is recommended. 3. Small right pleural effusion and right basilar atelectasis versus pneumonia. 4. Bilateral flank edema. 5. Small amount of presacral fluid and bilateral anterior pararenal space fat stranding, presumably reflective of 3rd spacing. Dictated by: Melvin Hammond M.D. on 07/02/2016 at 16:10 Cardiac Echo Impression Echocardiogram Report Interpretation Summary The left ventricle is normal in size. Left ventricular systolic function is moderately reduced. The ejection fraction is estimated to be 35-40%. There is moderate global hypokinesis of the left ventricle. Diastolic function couldnot be accurately assessed due to atrial fibrillation. The right ventricle is normal in size and function. The right ventricular systolic pressure is estimated at 26 mmHg assuming a right atrial pressure of 8 mm Hg. The left atrium is mildly dilated. The right atrium is severely dilated. There is mild mitral regurgitation. There is no other significant valvular heart disease. There is a moderate right-sided pleural effusion. Brief History Ms. Kathryn Espana is a 75 year old lady with past medical history significant for [place] (05/19/2007, at which time she was seen at [facility] in [place] and started on Diltiazem 240 mg once daily and ASA), HTN, GERD, and chronic back pain, presents to the ER via EMS due to sharp chest pain an d shortness of breath. Her symptoms started on 05/19/2016. Associated symptoms include subjective fever, chills, and productive cough with yellow sputum for the past week, and swollen lower extremities. She has not been able to lie flat since then and has been using an extra pillow to be able to sleep at night. Her feet pain has limited her from walking. Both her and son have been sick with flu-like symptoms. Atrial fibrillation with RVR with a rate in the 190s in the field. 45 mg Cardizem administered en route; 20 mg then 25 mg. Nor respiratory medications, but she takes her husbands Spiriva occasionally. Hospital Course Ms. Kathryn Espana is a 75 year old lady with past medical history significant for [place] (05/19/2007, at which time she was seen at [facility] in [place] and started on Diltiazem 240 mg once daily and ASA), HTN, GERD, and chronic back pain, presents to the ER via EMS due to sharp chest pain an d shortness of breath. Her symptoms started on 05/19/2016. Associated symptoms include subjective fever, chills, and productive cough with yellow sputum for the past week, and swollen lower extremities. She has not been able to lie flat since then and has been using an extra pillow to be able to sleep at night. Her feet pain has limited her from walking. Both her and son have been sick with flu-like symptoms. Atrial fibrillation with RVR with a rate in the 190s in the field. 45 mg Cardizem administered en route; 20 mg then 25 mg. Nor respiratory medications, but she takes her husbands Spiriva occasionally. Of note, patient had bloody urine once arriving to the floor (per HPI on admission). 1. Acute systolic heart failure with reduced ejection fraction, present on admission. Active. - Bilateral LE edema, and CXR consistent with pulmonary edema. She also complains of recent onset dyspnea, PND, and orthopnea. - Echocardiogram as above. EF 35-40%. Previous echo in 2012 showed EF of 81% and previous one of 70% - IV Lasix 80 mg BID. - KCL PO 40 Q 12H. 2. Acute Atrial fibrillation with RVR-active, present on admission. Improving. - Noted on EKG. She is on diltizem at home - Given Digoxin in the ED. - [id number] score of 4. on ASA 81mg home prescription, however she does not take it daily. - Amiodarone ggt protocol currently maxed out at 15mg. - IV cardiac heparin ggt was initially d/c's due to PTT >250, however the lab value was aberrant. ggt restarted. - On tele. - Cardiology consulted. - IV diltiazem ggt, PO amiodarone 400 BID, Loading dose of Digoxin Q6 for 4 doses. Metoprolol succinate 25 mg PO Q6H. 3. Shortness of breath, present on admission. Active. - Most likely 2nd to combination of systolic heart failure and COPD, with patient's long history of tobacco use. - Troponins negaitve x1, repeat pending. EKG with no ST elevation / depressions. Chest pain resolved. - Differential CHF, pneumonia, bronchitis, COPD - Patient was afebrile on presentation; WBC and procal were wnl. Viral panel and blood culture pending - CXR consistent with pulmonary edema. 4. Acute anasarca, present on admission. Active. - Physical exam - bilateral LE pitting edema up to the thigh. - as above. 5. Acute hematuria, present on admission. Active. - Denies dysuria. UA and cx pending. - Urology consulted. - CT pyelogram as above. negative for Bladder involvement, however positive for endometrial thickening with concern for carcinoma. patient was made aware and she does not wish any further investigation at this time. She understands that this could represent cancer and she states "she is old, and has been made aware in the past, and has denied investigation then as well." 6. Chronic hypertension, present on admission. Active. - She was normotensive on admission - Continue to monitor BP. 7. Chronic GERD, present on admission. Active. - Continue home meds. 8. Obesity. - BMI is 32.4. - Start carb restricted diet. 9. Chronic back pain, present on admission. Active. - Continue home meds. 10. Tobacco use disorder, present on admission. Active. - A current smoker with 30-40 pack year history. - Discussed smoking cessation. - Start nicotine patch for withdrawal. 11. Peripheral neuropathy, present on admission. Active. - HgA1c pending. - continue home gabapentin. Acetaminophen for mild pain when necessary. Bowel regimen Senna and MiraLAX scheduled and PRN. Zofran when necessary for nausea and vomiting. SubQ heparin. SCDs in place. High-risk medications: IV Morphine. Disposition: Likely here for > 2 midnights. Dependent upon... Will be discharged to where? When? Acute or chronic? Exam Vital Signs (Last) Date Time Temp Pulse Resp B/P Pulse Ox O2 Delivery O2 Flow Rate FiO2 07/04/16 12:09 36.9 107 18 111/55 94 Room Air 07/04/16 05:06 3.00 Exam General: an obese pleasant lady; in no acute stress and conversing well HEENT: Normocephalic, atraumatic. External ears without defect. Pupils equal, round, and reactive to light and accommodation. Anicteric sclerae, moist conjunctivae, and no lid lag. Oropharynx free of erythema and cobble stoning with moist mucosa. Neck: Supple with full range of motion. No jugular venous distension. No bruits. No lymphadenopathy or thyromegaly. Cardiovascular: tachycardic rate and irregular rhythm with no murmurs, rubs, or gallops appreciated Pulmonary: Clear to auscultation bilaterally with no crackles, but mild wheezes , no rhonchi. Normal respiratory effort with no use of accessory muscles. Abdomen: Bowel tones present. Soft, nontender, nondistended. No hepatosplenomegaly or masses appreciated. Extremities: No clubbing, cyanosis, mild pitting LE edema to the knee, or lymphadenopathy appreciated. poor toenail health. Skin: Normal temperature, turgor, and texture; no rash, ulcers, or subcutaneous nodules appreciated. Neurological: Cranial nerves grossly intact. Normal muscle strength, tone, and bulk. Reflexes, coordination, and sensory function within normal limits. No known gait impairment. Psychiatric: Normal mood and affect. Alert and oriented to person, place, and time. Test 07/01/16 13:16 07/01/16 16:15 07/02/16 03:25 07/04/16 02:25 Prothrombin Time 12.0sec (8.1-12.5) Prothromb Time International Ratio 1.12ratio Hemoglobin A1c 6.5% (4.8-5.6) Pro-B-Type Natriuretic Peptide 1454pg/mL (0-301) Procalcitonin 0.08ng/mL (0.00-0.08) Hold Cuevas Top Tube Received (Received) Urine Color Bloody (YELLOW) Urine Appearance Cloudy (CLEAR,HAZY) Urine pH 5.5 (5.0-8.0) Urine Specific [place] 1.020 (1.003-1.035) Urine Protein Negativemg/dL (NEG,TRACE) Urine Glucose (UA) Negativemg/dL (NEGATIVE) Urine Ketones Negativemg/dL (NEGATIVE) Urine Occult Blood Moderate (NEGATIVE) Urine Nitrite Negative (NEGATIVE) Urine Bilirubin Negative (NEGATIVE) Urine Urobilinogen 1.0mg/dL (NORMAL) Urine Leukocyte Esterase Negative (NEGATIVE) Urine RBC 11-50/hpf (0-2) Urine WBC 0-5/hpf (0-5) Urine Epithelial Cells None/hpf (NONE-MOD) Urine Crystals None seen (NONE SEEN) Urine Bacteria None/hpf (NONE-FEW) Urine Hyaline Casts None/lpf (NONE) Urine Granular Casts None seen (NONE SEEN) Urine Waxy Casts None seen (NONE SEEN) Urine Red Blood Cell Casts None seen (NONE SEEN) Urine White Blood Cell Casts None seen (NONE SEEN) Urine Mucus None seen (None Seen) Urine Trichomonas None seen (NONE SEEN) Urine Yeast None (NONE SEEN) Urinalysis Comment None Urine Culture Reflexed Not indicated Troponin T 0.010ug/L (0.0-0.011) Triglycerides Level 75mg/dL (0-149) Cholesterol Level 99mg/dL (100-199) LDL Cholesterol, Calculated 41.000mg/dL (0-99) VLDL Cholesterol 15.000mg/dL HDL Cholesterol 43mg/dL (>39) Cholesterol/HDL Ratio 2.30 (0.0-4.4) Thyroid Stimulating Hormone (TSH) 0.978uIU/mL (0.450-4.500) White Blood Count 14.7th/mm3 (3.8-10.1) Red Blood Count 4.73mil/mm3 (3.90-5.20) Hemoglobin 11.1g/dL (12.0-15.6) Hematocrit 36.8% (35.0-46.0) Mean Corpuscular Volume 77.8fL (81-100) Mean Corpuscular Hemoglobin 23.5pg (27.0-35.0) Mean Corpuscular Hemoglobin Concent 30.2% (32.0-37.0) Red Cell Distribution Width 18.5% (12.3-15.4) Platelet Count 472bil/L (150-400) Neutrophils (%) (Auto) 75.7% (40-74) Lymphocytes (%) (Auto) 12.6% (14-46) Monocytes (%) (Auto) 10.9% (4-12) Eosinophils (%) (Auto) 0.2% (0-5) Basophils (%) (Auto) 0.3% (0-3) Sodium Level 138mEq/L (134-144) Potassium Level 3.4mEq/L (3.5-5.2) Chloride Level 94mEq/L (97-108) Carbon Dioxide Level 32mmol/L (18-29) Blood Urea Nitrogen 9mg/dL (8-27) Creatinine 0.96mg/dL (0.57-1.00) Estimat Glomerular Filtration Rate 82mL/min (>59) Glucose Level 122mg/dL (60-99) Calcium Level 8.0mg/dL (8.5-10.1) Magnesium Level 1.9mg/dL (1.6-2.6) Total Bilirubin 1.4mg/dL (0.0-1.2) Aspartate Amino Transf (AST/SGOT) 18U/L (0-50) Alanine Aminotransferase (ALT/SGPT) 12U/L (0-32) Alkaline Phosphatase 89U/L (25-165) Total Protein 6.0g/dL (6.4-8.4) Albumin 2.9g/dL (3.4-5.0) Test 07/04/16 08:30 Activated Partial Thromboplast Time 56.5sec (22.8-33.0) Discharge Medications Discharge Medications Amiodarone (Amiodarone) 200 Mg Tablet 200 MG PO TIDWM Prescribed by: CHAPIS BAR DO Apixaban (Eliquis) 2.5 Mg Tablet 2.5 MG PO DAILY Prescribed by: CHAPIS BAR DO Aspirin (Aspirin) 81 Mg Tablet 81 MG PO DAILY (Reported) Furosemide (Lasix) 40 Mg Tablet 40 MG PO DAILY Prescribed by: CHAPIS BAR DO Gabapentin (Gabapentin) 400 Mg Capsule 400 MG PO TID (Reported) Lisinopril (Lisinopril) 2.5 Mg Tablet 2.5 MG PO DAILY Prescribed by: CHAPIS BAR DO Metoprolol Succinate ER (Metoprolol Succinate ER) 25 Mg Tab.er.24h 50 MG PO BID Prescribed by: CHAPIS BAR DO Omeprazole (Omeprazole) 20 Mg Capsule.dr 20 MG PO DAILY (Reported) Potassium Chloride (Potassium Chloride) 10 Meq Tab.er.prt 10 MEQ PO DAILY Prescribed by: CHAPIS BAR DO Spironolactone (Aldactone) 25 Mg Tablet 25 MG PO DAILY Prescribed by: CHAPIS BAR DO As needed Tramadol (Tramadol) 50 Mg Tablet 50 MG PO QID PRN PRN For Pain (Reported) Additional med instructions New medications : Amiodarone 200 mg. (42 pills total) - For the first 7 days. Take 200 mg 3 times a day with meals. (21 pills) - The next 7 days. Take 200 mg 2 times a day. (14 pills) - Then next 7 days. Take 200 mg every day. (7 pills) Lisinopril 2.5 mg daily Metoprolol Succinate ER 50 mg 2 times per day. Spironolactone 25 mg daily. Furosemide 40 mg daily. Apixaban (Eliquis) 2.5 mg daily. Potassium chloride 10 Meq daily. Followup Plan Follow-up plan Please follow up with your primary care physician for blood pressure and new medication check. You will need blood work 1-2 days before your appointment. Lab work - BMP. Please follow up with your cardiology office in 2-3 weeks time. Discharge Diet: Heart Healthy, Diabetic Discharge Activity: Limited until seen by PCP Follow-up Provider: [facility] Follow-up with PCP in: 1 week Provider: Abdias Valentin MD Follow-up in: 2 weeks (2-3 weeks) Time spent 45 minutes Attending Statement Patient seen and examined with housestaff. Agree with all attached documentation. CHAPIS BAR DO Jul 07, 2016 13:38 Perfecto Gutierrez MD Jul 07, 2016 15:39
== END 2016-07-04 16:05 | disposition home or self-care (01) | DRG 308 ==
LOC: SED 12:57 → PCC 15:26
PROVIDERS: ADMIT Internal Medicine; ATTEND Internal Medicine
PROC: 3E040RZ Introduction of Antiarrhythmic into Central Vein, Open Approach (ICD-10-PCS; principal; 2016-07-01)
PROC: 3E0234Z Introduction of Serum, Toxoid and Vaccine into Muscle, Percutaneous Approach (ICD-10-PCS; 2016-07-02)
DX: I48.0 Paroxysmal atrial fibrillation (principal); I50.21 Acute systolic (congestive) heart failure; I10 Essential (primary) hypertension; J44.9 Chronic obstructive pulmonary disease, unspecified; K21.9 Gastro-esophageal reflux disease without esophagitis; G62.9 Polyneuropathy, unspecified; R31.9 Hematuria, unspecified; D50.9 Iron deficiency anemia, unspecified; E66.9 Obesity, unspecified; F17.210 Nicotine dependence, cigarettes, uncomplicated; Z66 Do not resuscitate; G89.29 Other chronic pain; Z79.82 Long term (current) use of aspirin; I25.2 Old myocardial infarction; Z68.32 Body mass index [BMI] 32.0-32.9, adult; Z23 Encounter for immunization